=== PATIENT | male | born 1970 | race Caucasian/White ===

== ENCOUNTER 2017-05-21 12:01 | Emergency (ER) | payer MEDICAID ==
[~2017-05-21] VITALS: Ht 172.7 cm; Wt 106.6 kg
[2017-05-21 12:04] VITALS: Ht 172.7 cm; Wt 106.6 kg
[2017-05-21] MEDS ORDERED: CEFAZOLIN 1 GM INJ IM ONE (12:30)
[2017-05-21] MEDS ORDERED: CEFAZOLIN 1 GM/50 ML (PMX) 50 ML IVPB SCH (12:30)
[2017-05-21] MEDS ORDERED: HYDROCODONE/APAP (5/325) TAB PO ONE (12:30)
[2017-05-21] MEDS ORDERED: DIPHTH/TET/ACEL PERTUSS (ADULT) 0.5 ML VIAL IM* ONE (12:30)
[2017-05-21] MEDS ORDERED: LIDOCAINE 1% (MDV) 20 ML INJ SC ONE (13:00)
--- NOTE | 2017-05-21 13:07 | RADRPT ---
PROCEDURE: Left hand x-ray CLINICAL INDICATION: 3rd digit crush injury TECHNIQUE: AP, lateral and oblique views of the left hand were obtained. COMPARISON: None FINDINGS: There is normal mineralization. No acute fracture or dislocation is seen. There are no significant degenerative changes. There is no significant soft tissue swelling. IMPRESSION: Normal x-ray of the left hand x-ray . .Alexis Marie MD, MD Date Time Electronically viewed and signed by .Alexis Marie MD, on 05/21/2017 13:06 .A/
[2017-05-21] MEDS ORDERED: CEPH-443 PO (13:39)
[2017-05-21] MEDS ORDERED: IBUP-1542 PO (13:39)
[2017-05-21] MEDS ORDERED: HYDR-902 PO (13:39)
--- NOTE | 2017-05-21 15:46 | ERD ---
ER Documentation Chief Complaint Chief Complaint patient has an avulsion of the left middle finger HPI Patient is a 47-year-old male who presents to ED for concerns of finger injury which occurred approximately 1 hour ago to his left middle finger. Patient states that he was moving a large piece of granite countertop when he accidentally dropped the countertop onto his finger. Patient states that a chunk of skin fell off however he he threw it away. Patient is able to move his third digit without any difficulty. Patient denies any previous injuries to the affected extremity. Is right-hand dominant. Patient denies any fevers, chills, nausea, vomiting no chest pain, shortness of breath or LOC. Patient does not recall his last tetanus vaccination. ROS All systems reviewed and are negative except as per history of present illness. Medications Home Meds Active Scripts Cephalexin* (Keflex*) 500 Mg Capsule, 500 MG PO TID for 10 Days, CAP Prov:MARCOS TRAMMELL PA-C 05/21/17 Hydrocodone/Acetaminophen (Timnath 10-325 Tablet) 1 Each Tablet, 1 TAB PO Q6H Y for PAIN, #10 TAB Prov:MARCOS TRAMMELL PA-C 05/21/17 Ibuprofen* (Motrin*) 600 Mg Tab, 600 MG PO Q6, #30 TAB Prov:MARCOS TRAMMELL PA-C 05/21/17 Allergies Allergies: Coded Allergies: No Known Allergy (Unverified , 05/21/17) PMhx/Soc Medical and Surgical Hx: pt denies Medical Hx, pt denies Surgical Hx Hx Alcohol Use: No Hx Substance Use: No Hx Tobacco Use: No Smoking Status: Never smoker Physical Exam Vitals Vital Signs Date Time Temp Pulse Resp B/P Pulse Ox O2 Delivery O2 Flow Rate FiO2 05/21/17 12:04 98.9 94 16 156/92 95 Physical Exam GENERAL: Well-developed, well-nourished male. Appears in no acute distress. HEAD: Normocephalic, atraumatic. EYES: Pupils are equally reactive bilaterally. EOMs grossly intact. No conjunctival erythema. ENT: Moist mucous membranes. No uvula deviation. No kissing tonsils. NECK: Supple. No meningismus. Normal range of motion of the neck. LUNGS: Clear to auscultation bilaterally. No rhonchi, wheezing, rales or coarse breath sounds. HEART: Regular rate and rhythm. No murmurs, rubs or gallops. EXTREMITIES: Equal pulses bilaterally. No peripheral clubbing, cyanosis or edema. No unilateral leg swelling. NEUROLOGIC: Alert and oriented. Moving all four extremities without any difficulty. Normal speech. Steady gait. SKIN: Skin avulsion injury noted to the 3rd left distal tip, volar surface, No exposed bone or tendons noted. Minimal active bleeding. LEFT HAND: Skin avulsion as noted above. Patient able to bend at the PIP and DIP joint of the third digit. Normal range of motion of all other digits, wrist , elbow. Tender to palpation over the distal tip of the third digit. Nontender palpation of digits 1, 2, 4 and 5, palmar aspect, wrist. Sensation intact to light touch. Neurovascularly intact. (Able to give thumbs up, make an ok sign, cross digits 2 and 3, thumb to pinky opposition. 2+ RP.) No snuffbox tenderness. Results 24 hrs Current Medications Medications (Trade) Dose Ordered Sig/Nikki Route PRN Reason Start Time Stop Time Status Last Admin Dose Admin Diphtheria/ Tetanus/Acell Pertussis (Adacel) 0.5 ml ONCE ONCE IM* 05/21/17 12:30 05/21/17 12:31 DC 05/21/17 12:34 Acetaminophen/ Hydrocodone Bitart 1 tab 1 tab ONCE ONCE PO 05/21/17 12:30 05/21/17 12:31 DC 05/21/17 12:32 Cefazolin Sodium (Ancef 1 Gm/50 ml (Pmx)) 50 ml @ 100 mls/hr ONCE IVPB 05/21/17 12:30 05/21/17 12:30 DC Cefazolin Sodium (Ancef) 1 gm ONCE ONCE IM 05/21/17 12:30 05/21/17 12:31 DC 05/21/17 12:32 Lidocaine (Xylocaine 1% (Mdv) 20 ml) 20 ml ONCE ONCE SC 05/21/17 13:00 05/21/17 13:01 DC Procedures/MDM ED COURSE: The patient was stable throughout ED course. I kept the patient and/or family informed of laboratory and diagnostic imaging results throughout the ED course. DIAGNOSTIC IMAGING: Read by radiologist. Patient: JERRELL RODRÍGUEZ : 1970 Age: 47 Sex: M MR #: [id number] DOS: 05/21/17 1213 Ordering MD: MARCOS TRAMMELL PA-C Location: [facility] Room/Bed: PROCEDURE: Left hand x-ray CLINICAL INDICATION: 3rd digit crush injury TECHNIQUE: AP, lateral and oblique views of the left hand were obtained. COMPARISON: None FINDINGS: There is normal mineralization. No acute fracture or dislocation is seen. There are no significant degenerative changes. There is no significant soft tissue swelling. IMPRESSION: Normal x-ray of the left hand x-ray . .Alexis Marie MD, MD Date Time Electronically viewed and signed by .Alexis Marie MD, MD on 05/21/2017 13: 06 .A/ CC: MARCOS TRAMMELL PA-C PROCEDURES: SPLINT APPLICATION: The patient was verbally consented at bedside prior to splint application. Patient was explained the risks, benefits and alternatives to this procedure. The patient was neurovascularly intact prior to and status post application of the splint. The patient tolerated the procedure well with no complications. Splint type: metal finger splint Extremity: left hand, 3rd digit Indication: skin avulsion injury MEDICATIONS GIVEN: Timnath, Tdap, ANcef Patient tolerated medication well with no adverse reactions. Patient reported improvement in pain. MEDICAL DECISION MAKING: Patient is a 47-year-old male who presents to ED for concerns of finger injury which occurred approximately 1 hour ago to his left middle finger. Patient states that he was moving a large piece of granite countertop when he accidentally dropped the countertop onto his finger. Vital signs were reviewed. Patient was afebrile. Physical exam findings revealed avulsion injury to the distal tip of the third digit. Given that skin was completely avulsed off, unable to suture at this time. Concerns of exposure to the bone, patient was given a dose of Ancef here in the ED. Surgicel was placed over the site. X- ray imaging was unremarkable. Patient was placed in a metal finger splint. Low suspicion for dislocation, carpal fracture, scaphoid fracture, metacarpal fracture, phalanx fracture, tuft fracture, tendon injury, neurovascular injury, subungual hematoma, osteomyelitis or compartment syndrome. Patient was advised that he will need to follow-up with a hand specialist. Referral information given for [facility]. PRESCRIPTIONS: Ibuprofen, Timnath, Keflex DISCHARGE: At this time, patient is stable for discharge and outpatient management. Was given copy of all imaging studies obtained today. Patient was advised to keep metal splint on until seen by hand specialist. I have instructed the patient to follow-up with his/her primary care physician in 1-2 days. I have discussed with the patient the possibility of needing to see an systems specialist for further workup and imaging if the pain persists. I have instructed the patient to promptly return to the ER for any new or worsening symptoms including increased pain, swelling, redness, warmth or fever. The patient and/or family expressed understanding of and agreement with this plan. All questions were answered. Home care instructions were provided. Patients blood pressure was elevated (>120/80) but appears stable without evidence of hypertensive emergency, hypertensive urgency or end-organ failure. I had discussion with the patient about the risks of hypertension. I have advised the patient to follow up with his/her primary care physician for outpatient monitoring and treatment for hypertension in 2-3 days. I have instructed the patient to return to the ER for any new or worsening symptoms including chest pain, shortness of breath, headache, blurred vision, confusion, nausea, vomiting or LOC. Disclaimer: Inadvertent spelling and grammatical errors are likely due to EHR/ dictation software use and do not reflect on the overall quality of patient care. Also, please note that the electronic time recorded on this note does not necessarily reflect the actual time of the patient encounter. Departure Diagnosis: Primary Impression: Avulsion injury Additional Impression: Finger injury Encounter type: initial encounter Laterality: left Qualified Code: S69.92XA - Injury of finger of left hand, initial encounter Condition: Stable Patient Instructions: Crush Injury, Hand/Finger, Skin Avulsion Referrals: COMMUNITY CLINICS YOU HAVE RECEIVED A MEDICAL SCREENING EXAM AND THE RESULTS INDICATE THAT YOU DO NOT HAVE A CONDITION THAT REQUIRES URGENT TREATMENT IN THE EMERGENCY DEPARTMENT. FURTHER EVALUATION AND TREATMENT OF YOUR CONDITION CAN WAIT UNTIL YOU ARE SEEN IN YOUR DOCTORS OFFICE WITHIN THE NEXT 1-2 DAYS. IT IS YOUR RESPONSIBILITY TO MAKE AN APPOINTMENT FOR FOLOW-UP CARE. IF YOU HAVE A PRIMARY DOCTOR --you should call your primary doctor and schedule an appointment IF YOU DO NOT HAVE A PRIMARY DOCTOR YOU CAN CALL OUR PHYSICIAN REFERRAL HOTLINE AT IF YOU CAN NOT AFFORD TO SEE A PHYSICIAN YOU CAN CHOSE FROM THE FOLLOWING [facility] [address] [facility] [address] [facility] [address] [facility] [address] [facility] [address] [facility] [facility] [address] [facility]. [facility] YOU HAVE RECEIVED A MEDICAL SCREENING EXAM AND THE RESULTS INDICATE THAT YOU DO NOT HAVE A CONDITION THAT REQUIRES URGENT TREATMENT IN THE EMERGENCY DEPARTMENT. FURTHER EVALUATION AND TREATMENT OF YOUR CONDITION CAN WAIT UNTIL YOU ARE SEEN IN YOUR DOCTORS OFFICE WITHIN THE NEXT 1-2 DAYS. IT IS YOUR RESPONSIBILITY TO MAKE AN APPOINTMENT FOR FOLOW-UP CARE. IF YOU HAVE A PRIMARY DOCTOR --you should call your primary doctor and schedule and appointment IF YOU DO NOT HAVE A PRIMARY DOCTOR YOU CAN CALL OUR PHYSICIAN REFERRAL HOTLINE AT . IF YOU CAN NOT AFFORD TO SEE A PHYSICIAN YOU CAN CHOSE FROM THE FOLLOWING [facility]: [facility] [address] [place] [address] [facility] [address] [place] [address] [facility] [address] [place] [address] [facility] Hours: Mon-Fri 9:00 AM - 5:00 PM Additional Instructions: Call your primary care doctor TOMORROW for an appointment during the next 1-2 days.See the doctor sooner or return here if your condition worsens before your appointment time. Follow up with a hand specialist in the next 1-2 days. Go to [facility] if needed. MARCOS TRAMMELL PA-C May 21, 2017 15:46
== END 2017-05-21 14:00 | disposition home or self-care (01) ==
LOC: FTE 12:01
DX: S61.213A Laceration without foreign body of left middle finger without damage to nail, initial encounter (principal); W20.8XXA Other cause of strike by thrown, projected or falling object, initial encounter; Y92.9 Unspecified place or not applicable; Z23 Encounter for immunization
CPT/HCPCS: 29130; 73130; 90471; 90715; 96372; J0690; Z7502; Z7610